=== PATIENT | female | born 1965 | race Caucasian/White ===

== ENCOUNTER 2016-10-31 16:41 | Inpatient (IN) | payer MEDICARE ==
[~2016-10-31] VITALS: Ht 172.7 cm; Wt 51.4 kg
[~2016-10-31 16:41] MED LIST: ALENDRONATE SOD70 MG PO; ALPRAZOLAM0.5 MG PO; ASPIR 8181 MG PO; BACTROBAN CREAM15 GM TOP; CALCIUM 600 +1 EAC7 PO; CLINDAMYCIN HC300 MG PO; DESYREL 50 MG T50 MG PO; DIAMOX 250 MG250 MG PO; DOXYCYCLINE HY100 MG PO; FERROUS SULFAT325 MG PO; FIORICET TAB1 EA PO; FLAGYL500 MG PO; FOLIC ACID 1 MG1 MG PO; GABAPENTIN600 MG PO; GARCINIA CAMBO1 EACH PO; GINKGO BILOBA30 MG PO; IBUPROFEN600 MG PO; IPRAT-ALBUT 0.5-3 ML INH; K-DUR TAB 20 M20 MEQ PO; KEFLEX500 MG PO; KLOR-CON M2020 MEQ PO; LASIX40 MG PO; LEVAQUIN750 MG PO; LIORESAL TAB 1010 MG PO; LOPERAMIDE2 MG PO; LOPRESSOR 25 MG25 MG PO; MEDROL DOSEPAK 24 MG PO; METOLAZONE2.5 MG PO; MULTI-VITAMIN1 EACH PO; NEURONTIN 300300 MG PO; OXYCODONE HCL10 MG PO; OXYCODONE HCL5 MG PO; PHENERGAN 25 MG25 M1 PO; PROAIR HFA8.5 GM INH; SINGULAIR10 MG PO; SYMBICORT 16010.2 GM INH; SYNTHROID112 MCG PO; TOPAMAX50 MG PO; TRAZODONE HCL150 MG PO; VENLAFAXINE HC100 MG PO; VENTOLIN/PROVE0.5 ML INH; VITAMIN B COMP1 EACH PO; VITAMIN B-121000 MC3 PO; VITAMIN C 500500 MG PO; VITAMIN D1000 UNI1 PO; WELLBUTRIN XL150 MG PO; ZANTAC150 MG PO; ZOLOFT25 MG PO; ZYRTEC10 M3 PO
[2016-10-31 17:42] LABS: RED BLOOD COUNT 4.45 M/UL (4.00-5.10); WHITE BLOOD COUNT 8.3 K/UL (4.5-11.0)
[2016-10-31 21:01] LABS: BUN/CREATININE RATIO 8 (0-10)
[2016-11-01 04:48] LABS: WHITE BLOOD COUNT 8.9 K/UL (4.5-11.0)
[2016-11-01 04:58] LABS: HEMOGLOBIN 10.1 gm/dl (12.3-15.3); RED BLOOD COUNT 3.51 M/UL (4.00-5.10)
[2016-11-01 05:25] LABS: BUN/CREATININE RATIO 9 (0-10)
[2016-11-01] MEDS ORDERED: DIAMOX 250 MG250 MG PO (10:49)
[2016-11-01] MEDS ORDERED: ALENDRONATE SOD70 MG PO (10:52)
[2016-11-01] MEDS ORDERED: ALPRAZOLAM0.5 MG PO (10:53)
[2016-11-01] MEDS ORDERED: BUTALBIT-ACETA1 EACH PO (10:55)
[2016-11-01] MEDS ORDERED: DOXYCYCLINE MO100 MG PO (10:57)
[2016-11-01] MEDS ORDERED: ETODOLAC400 MG PO (10:58)
[2016-11-01] MEDS ORDERED: FERROUS GLUCON324 M1 PO (10:59)
[2016-11-01] MEDS ORDERED: OXYCODONE HCL10 MG PO (11:02)
[2016-11-02 04:16] LABS: BUN/CREATININE RATIO 12 (0-10)
[2016-11-02 05:02] LABS: HEMOGLOBIN 9.4 gm/dl (12.3-15.3); RED BLOOD COUNT 3.27 M/UL (4.00-5.10)
[2016-11-02 05:04] LABS: WHITE BLOOD COUNT 6.6 K/UL (4.5-11.0)
[2016-11-03 04:42] LABS: RED BLOOD COUNT 3.13 M/UL (4.00-5.10); WHITE BLOOD COUNT 5.9 K/UL (4.5-11.0)
[2016-11-03 05:01] LABS: BUN/CREATININE RATIO 16 (0-10)
[2016-11-03] MEDS ORDERED: POTASSIUM CHLO20 ME1 PO (15:12)
[2016-11-03] MEDS ORDERED: QUESTRAN LIGHT 44 GM PO (15:16)
[2016-11-03] MEDS ORDERED: SYNTHROID 125125 MCG PO (15:24)
[2016-11-03] MEDS ORDERED: LOPERAMIDE2 MG PO (15:52)
[2017-04-27] MEDS ORDERED: BREO ELLIPTA 11 EACH INH ×2 (00:09→00:13)
[2017-04-27] MEDS ORDERED: DIFLORASONE DIA TP (00:11)
[2017-05-01] MEDS ORDERED: PREDNISONE 20 M20 MG PO (13:36)
[2017-07-10] MEDS ORDERED: BREO ELLIPTA 11 EACH INH (11:51)
[2017-07-10] MEDS ORDERED: FUROSEMIDE80 MG PO (11:53)
[2017-07-10] MEDS ORDERED: CIPRO500 MG PO (11:55)
[2017-07-10] MEDS ORDERED: BACTRIM DS TAB1 EACH PO (11:56)
[2017-07-10] MEDS ORDERED: DIFLUCAN100 MG PO (11:56)
== END 2016-11-03 18:53 | disposition home health service (06) | DRG 918 ==
LOC: ER1 16:41 → ZEROF 23:00 → CCU 23:00 → PROG CARE 11-01 09:30 → CCU 11-02 10:31 → PROG CARE 11-02 14:36
PROVIDERS: Emergency Medicine; Family Medicine; ADMIT Emergency Medicine
DX: T50.2X1A Poisoning by carbonic-anhydrase inhibitors, benzothiadiazides and other diuretics, accidental (unintentional), initial encounter (principal); J96.11 Chronic respiratory failure with hypoxia; J96.12 Chronic respiratory failure with hypercapnia; E66.2 Morbid (severe) obesity with alveolar hypoventilation; K52.1 Toxic gastroenteritis and colitis; I50.32 Chronic diastolic (congestive) heart failure; M96.842 Postprocedural seroma of a musculoskeletal structure following a musculoskeletal system procedure; E87.6 Hypokalemia; I11.0 Hypertensive heart disease with heart failure; J44.9 Chronic obstructive pulmonary disease, unspecified; E03.9 Hypothyroidism, unspecified; J45.909 Unspecified asthma, uncomplicated; F32.9 Major depressive disorder, single episode, unspecified; F17.210 Nicotine dependence, cigarettes, uncomplicated; R74.9 Abnormal serum enzyme level, unspecified; I44.7 Left bundle-branch block, unspecified; T50.2X5A Adverse effect of carbonic-anhydrase inhibitors, benzothiadiazides and other diuretics, initial encounter; F41.1 Generalized anxiety disorder; D63.8 Anemia in other chronic diseases classified elsewhere; K52.9 Noninfective gastroenteritis and colitis, unspecified; F41.8 Other specified anxiety disorders; Y83.8 Other surgical procedures as the cause of abnormal reaction of the patient, or of later complication, without mention of misadventure at the time of the procedure; I95.9 Hypotension, unspecified; F55.8 Abuse of other non-psychoactive substances; Z85.3 Personal history of malignant neoplasm of breast; Z98.84 Bariatric surgery status; Z68.35 Body mass index [BMI] 35.0-35.9, adult; Z88.5 Allergy status to narcotic agent; Z88.0 Allergy status to penicillin; Z88.6 Allergy status to analgesic agent
CPT/HCPCS: ECHO; 36415; 71010; 78452; 80048; 80053; 80307; 81001; 82533; 82550; 82553; 82962; 83605; 83735; 83874; 83880; 84132; 84439; 84443; 84484; 84703; 85025; 85027; 85379; 85610; 85730; 87040; 87070; 87086; 87205; 89055; 93005; 93017; 93306; 94664; 96365; 96366; 96367; 96375; 99291; A9502; G0378; J1644; J1956; J2185; J2405; J2785; J3370; J3480; J7030; J7040; J7050; J7070; Q9963

== ENCOUNTER 2016-11-20 00:11 | Inpatient (IN) | payer MEDICARE ==
[~2016-11-20] VITALS: Ht 175.3 cm; Wt 124.7 kg
[~2016-11-20 00:11] MED LIST changes: +BUTALBIT-ACETA1 EACH PO; +DOXYCYCLINE MO100 MG PO; +ETODOLAC400 MG PO; +FERROUS GLUCON324 M1 PO; +POTASSIUM CHLO20 ME1 PO; +QUESTRAN LIGHT 44 GM PO; +SYNTHROID 125125 MCG PO
[2016-11-20 05:15] LABS: HEMOGLOBIN 11.6 gm/dl (12.3-15.3); RED BLOOD COUNT 4.15 M/UL (4.00-5.10); WHITE BLOOD COUNT 9.4 K/UL (4.5-11.0)
[2016-11-20 05:33] LABS: BUN/CREATININE RATIO 14 (0-10)
[2016-11-20] MEDS ORDERED: LEVAQUIN750 MG PO (12:19)
[2016-11-20] MEDS ORDERED: ALPRAZOLAM0.5 MG PO (12:25)
[2016-11-20] MEDS ORDERED: FOLIC ACID 1 MG1 MG PO (12:26)
[2016-11-20] MEDS ORDERED: VITAMIN D2000 UNI1 PO (12:26)
[2016-11-20] MEDS ORDERED: PROVENTIL HFA 61 INH INH (12:27)
[2016-11-20] MEDS ORDERED: SYMBICORT 160-1 INHA INH (12:28)
[2016-11-20] MEDS ORDERED: OXYCODONE HCL10 MG PO (12:32)
[2016-11-21 04:33] LABS: HEMOGLOBIN 9.1 gm/dl (12.3-15.3); RED BLOOD COUNT 3.14 M/UL (4.00-5.10); WHITE BLOOD COUNT 7.9 K/UL (4.5-11.0)
[2016-11-21 05:34] LABS: BUN/CREATININE RATIO 15 (0-10)
[2016-11-22 04:24] LABS: HEMOGLOBIN 9.4 gm/dl (12.3-15.3); RED BLOOD COUNT 3.25 M/UL (4.00-5.10); WHITE BLOOD COUNT 7.3 K/UL (4.5-11.0)
[2016-11-22 04:51] LABS: BUN/CREATININE RATIO 16 (0-10)
[2016-11-23 04:48] LABS: HEMOGLOBIN 8.4 gm/dl (12.3-15.3); RED BLOOD COUNT 3.02 M/UL (4.00-5.10); WHITE BLOOD COUNT 5.6 K/UL (4.5-11.0)
[2016-11-23 05:01] LABS: BUN/CREATININE RATIO 23 (0-10)
[2016-11-24 07:23] LABS: HEMOGLOBIN 9.6 gm/dl (12.3-15.3)
[2016-11-24 07:30] LABS: RED BLOOD COUNT 3.4 M/UL (4.00-5.10); WHITE BLOOD COUNT 7.9 K/UL (4.5-11.0)
[2016-11-24 07:39] LABS: BUN/CREATININE RATIO 28 (0-10)
[2016-11-25 06:40] LABS: HEMOGLOBIN 9.2 gm/dl (12.3-15.3); RED BLOOD COUNT 3.34 M/UL (4.00-5.10); WHITE BLOOD COUNT 8.6 K/UL (4.5-11.0)
[2016-11-25 06:59] LABS: BUN/CREATININE RATIO 27 (0-10)
[2016-11-26 06:51] LABS: RED BLOOD COUNT 3.31 M/UL (4.00-5.10); WHITE BLOOD COUNT 7.9 K/UL (4.5-11.0)
[2016-11-26 07:06] LABS: BUN/CREATININE RATIO 30 (0-10)
[2016-11-26] MEDS ORDERED: LEVAQUIN500 MG PO (11:22)
[2017-04-27] MEDS ORDERED: BREO ELLIPTA 11 EACH INH ×2 (00:09→00:13)
[2017-04-27] MEDS ORDERED: DIFLORASONE DIA TP (00:11)
[2017-05-01] MEDS ORDERED: PREDNISONE 20 M20 MG PO (13:36)
[2017-07-10] MEDS ORDERED: BREO ELLIPTA 11 EACH INH (11:51)
[2017-07-10] MEDS ORDERED: FUROSEMIDE80 MG PO (11:53)
[2017-07-10] MEDS ORDERED: CIPRO500 MG PO (11:55)
[2017-07-10] MEDS ORDERED: DIFLUCAN100 MG PO (11:56)
[2017-07-10] MEDS ORDERED: BACTRIM DS TAB1 EACH PO (11:56)
== END 2016-11-26 15:46 | disposition home or self-care (01) | DRG 464 ==
LOC: ER1 00:11 → ZEROF 09:52 → MED SURG 4 14:32
PROVIDERS: Internal Medicine; Orthopaedic Surgery; Student in an Organized Health Care Education/Training Program; ADMIT Family Medicine
PROC: 3E0T3CZ (ICD-10-PCS; 2016-11-24)
PROC: 0JBF0ZZ Excision of Left Upper Arm Subcutaneous Tissue and Fascia, Open Approach (ICD-10-PCS; principal; 2016-11-24 15:45)
DX: M54.5 Low back pain (principal); J96.10 Chronic respiratory failure, unspecified whether with hypoxia or hypercapnia; E66.2 Morbid (severe) obesity with alveolar hypoventilation; Z68.41 Body mass index [BMI] 40.0-44.9, adult; T81.30XA Disruption of wound, unspecified, initial encounter; I50.32 Chronic diastolic (congestive) heart failure; N13.30 Unspecified hydronephrosis; J44.0 Chronic obstructive pulmonary disease with (acute) lower respiratory infection; M96.842 Postprocedural seroma of a musculoskeletal structure following a musculoskeletal system procedure; W01.0XXA Fall on same level from slipping, tripping and stumbling without subsequent striking against object, initial encounter; Y92.002 Bathroom of unspecified non-institutional (private) residence as the place of occurrence of the external cause; Y83.8 Other surgical procedures as the cause of abnormal reaction of the patient, or of later complication, without mention of misadventure at the time of the procedure; I11.0 Hypertensive heart disease with heart failure; I27.2 Other secondary pulmonary hypertension; D63.8 Anemia in other chronic diseases classified elsewhere; I25.10 Atherosclerotic heart disease of native coronary artery without angina pectoris; J45.909 Unspecified asthma, uncomplicated; I44.7 Left bundle-branch block, unspecified; R07.89 Other chest pain; R74.8 Abnormal levels of other serum enzymes; E03.9 Hypothyroidism, unspecified; E78.5 Hyperlipidemia, unspecified; J20.9 Acute bronchitis, unspecified; I07.1 Rheumatic tricuspid insufficiency; M81.0 Age-related osteoporosis without current pathological fracture; I89.0 Lymphedema, not elsewhere classified; F41.1 Generalized anxiety disorder; F17.210 Nicotine dependence, cigarettes, uncomplicated; F32.9 Major depressive disorder, single episode, unspecified; Z95.1 Presence of aortocoronary bypass graft; K91.1 Postgastric surgery syndromes; Z91.19 Patient's noncompliance with other medical treatment and regimen; Z98.84 Bariatric surgery status; Z85.3 Personal history of malignant neoplasm of breast; Z91.81 History of falling; Z99.81 Dependence on supplemental oxygen; Z79.51 Long term (current) use of inhaled steroids; Z79.891 Long term (current) use of opiate analgesic; Z79.82 Long term (current) use of aspirin; Z79.899 Other long term (current) drug therapy; Z88.0 Allergy status to penicillin; Z88.5 Allergy status to narcotic agent; Z90.11 Acquired absence of right breast and nipple; Z90.49 Acquired absence of other specified parts of digestive tract; Z98.51 Tubal ligation status; Z98.890 Other specified postprocedural states; Z82.5 Family history of asthma and other chronic lower respiratory diseases; Z83.3 Family history of diabetes mellitus; Z82.49 Family history of ischemic heart disease and other diseases of the circulatory system
CPT/HCPCS: 36415; 70450; 71250; 72125; 72128; 72131; 73700; 76881; 80048; 80053; 80307; 81001; 82550; 82553; 83605; 83690; 83874; 83880; 84132; 84484; 85025; 85027; 85610; 85730; 87040; 87070; 87077; 87086; 87186; 87205; 93005; 93970; 94640; 94660; 94664; 96374; 96375; 99285; G0378; G0480; J1630; J1650; J1956; J2250; J2270; J2405; J2930; J3010; J3370; J7120; Q9962

== ENCOUNTER 2016-11-29 18:01 | Emergency (ER) | payer MEDICARE ==
[~2016-11-29 18:01] MED LIST changes: +LEVAQUIN500 MG PO; +PROVENTIL HFA 61 INH INH; +SYMBICORT 160-1 INHA INH; +VITAMIN D2000 UNI1 PO
[2016-11-29 19:31] LABS: HEMOGLOBIN 10.6 gm/dl (12.3-15.3); RED BLOOD COUNT 3.77 M/UL (4.00-5.10); WHITE BLOOD COUNT 6.1 K/UL (4.5-11.0)
[2016-11-29 20:05] LABS: BUN/CREATININE RATIO 11 (0-10)
[2017-04-27] MEDS ORDERED: BREO ELLIPTA 11 EACH INH ×2 (00:09→00:13)
[2017-04-27] MEDS ORDERED: DIFLORASONE DIA TP (00:11)
[2017-05-01] MEDS ORDERED: PREDNISONE 20 M20 MG PO (13:36)
[2017-07-10] MEDS ORDERED: BREO ELLIPTA 11 EACH INH (11:51)
[2017-07-10] MEDS ORDERED: FUROSEMIDE80 MG PO (11:53)
[2017-07-10] MEDS ORDERED: CIPRO500 MG PO (11:55)
[2017-07-10] MEDS ORDERED: BACTRIM DS TAB1 EACH PO (11:56)
[2017-07-10] MEDS ORDERED: DIFLUCAN100 MG PO (11:56)
== END 2016-11-29 22:30 | disposition home or self-care (01) ==
LOC: ER1 18:01
PROVIDERS: Specialist/Technologist Athletic Trainer
DX: I95.9 Hypotension, unspecified (principal); F17.200 Nicotine dependence, unspecified, uncomplicated; E66.01 Morbid (severe) obesity due to excess calories; Z88.0 Allergy status to penicillin; Z88.1 Allergy status to other antibiotic agents
CPT/HCPCS: 36415; 80053; 82550; 82553; 84484; 85025; 93005; 96360; 99285

== ENCOUNTER 2016-12-17 23:36 | Emergency (ER) | payer MEDICARE ==
[2017-04-27] MEDS ORDERED: BREO ELLIPTA 11 EACH INH ×2 (00:09→00:13)
[2017-04-27] MEDS ORDERED: DIFLORASONE DIA TP (00:11)
[2017-05-01] MEDS ORDERED: PREDNISONE 20 M20 MG PO (13:36)
[2017-07-10] MEDS ORDERED: BREO ELLIPTA 11 EACH INH (11:51)
[2017-07-10] MEDS ORDERED: FUROSEMIDE80 MG PO (11:53)
[2017-07-10] MEDS ORDERED: CIPRO500 MG PO (11:55)
[2017-07-10] MEDS ORDERED: BACTRIM DS TAB1 EACH PO (11:56)
[2017-07-10] MEDS ORDERED: DIFLUCAN100 MG PO (11:56)
== END 2016-12-18 01:10 | disposition left against medical advice (07) ==
LOC: ER1 23:36
DX: Z53.21 Procedure and treatment not carried out due to patient leaving prior to being seen by health care provider (principal)
CPT/HCPCS: 82962

== ENCOUNTER 2016-12-18 15:57 | Emergency (ER) | payer MEDICARE ==
[2016-12-18 18:19] LABS: BUN/CREATININE RATIO 35 (0-10)
[2016-12-18 19:05] LABS: HEMOGLOBIN 11.3 gm/dl (12.3-15.3); RED BLOOD COUNT 3.9 M/UL (4.00-5.10); WHITE BLOOD COUNT 10.1 K/UL (4.5-11.0)
[2017-04-27] MEDS ORDERED: BREO ELLIPTA 11 EACH INH ×2 (00:09→00:13)
[2017-04-27] MEDS ORDERED: DIFLORASONE DIA TP (00:11)
[2017-05-01] MEDS ORDERED: PREDNISONE 20 M20 MG PO (13:36)
[2017-07-10] MEDS ORDERED: BREO ELLIPTA 11 EACH INH (11:51)
[2017-07-10] MEDS ORDERED: FUROSEMIDE80 MG PO (11:53)
[2017-07-10] MEDS ORDERED: CIPRO500 MG PO (11:55)
[2017-07-10] MEDS ORDERED: DIFLUCAN100 MG PO (11:56)
[2017-07-10] MEDS ORDERED: BACTRIM DS TAB1 EACH PO (11:56)
== END 2016-12-18 23:03 | disposition home or self-care (01) ==
LOC: ER1 15:57
PROVIDERS: Physician Assistant
DX: R07.89 Other chest pain (principal); R60.0 Localized edema; E16.2 Hypoglycemia, unspecified; S41.002D Unspecified open wound of left shoulder, subsequent encounter; J44.9 Chronic obstructive pulmonary disease, unspecified; J45.909 Unspecified asthma, uncomplicated; M54.9 Dorsalgia, unspecified; G89.29 Other chronic pain; Z85.3 Personal history of malignant neoplasm of breast; F17.210 Nicotine dependence, cigarettes, uncomplicated; Z88.0 Allergy status to penicillin; Z88.5 Allergy status to narcotic agent; Z88.8 Allergy status to other drugs, medicaments and biological substances; X58.XXXD Exposure to other specified factors, subsequent encounter
CPT/HCPCS: 36415; 71010; 80053; 82550; 82553; 82962; 83874; 83880; 84484; 85025; 93005; 99285

== ENCOUNTER → 2017-01-02 | Outpatient (CLI) | payer MEDICARE ==
[~2017-01-02] MED LIST changes: +BACTRIM DS TAB1 EACH PO; +BREO ELLIPTA 11 EACH INH; +CIPRO500 MG PO; +DIFLORASONE DIA TP; +DIFLUCAN100 MG PO; +FUROSEMIDE80 MG PO; +PREDNISONE 20 M20 MG PO
[2017-01-02 17:02] LABS: HEMOGLOBIN 11.4 gm/dl (12.3-15.3); RED BLOOD COUNT 4.11 M/UL (4.00-5.10); WHITE BLOOD COUNT 10.1 K/UL (4.5-11.0)
== END ==
LOC: LAB 16:02
PROVIDERS: Nurse Practitioner
DX: M00.9 Pyogenic arthritis, unspecified (principal)
CPT/HCPCS: 36415; 85027

== ENCOUNTER 2017-01-20 21:52 | Emergency (ER) | payer MEDICARE ==
[~2017-01-20 21:52] MED LIST changes: -BACTRIM DS TAB1 EACH PO; -BREO ELLIPTA 11 EACH INH; -CIPRO500 MG PO; -DIFLORASONE DIA TP; -DIFLUCAN100 MG PO; -FUROSEMIDE80 MG PO; -PREDNISONE 20 M20 MG PO
[2017-04-27] MEDS ORDERED: BREO ELLIPTA 11 EACH INH ×2 (00:09→00:13)
[2017-04-27] MEDS ORDERED: DIFLORASONE DIA TP (00:11)
[2017-05-01] MEDS ORDERED: PREDNISONE 20 M20 MG PO (13:36)
[2017-07-10] MEDS ORDERED: BREO ELLIPTA 11 EACH INH (11:51)
[2017-07-10] MEDS ORDERED: FUROSEMIDE80 MG PO (11:53)
[2017-07-10] MEDS ORDERED: CIPRO500 MG PO (11:55)
[2017-07-10] MEDS ORDERED: BACTRIM DS TAB1 EACH PO (11:56)
[2017-07-10] MEDS ORDERED: DIFLUCAN100 MG PO (11:56)
== END 2017-01-21 02:00 | disposition home or self-care (01) ==
LOC: ER1 21:52
DX: M25.512 Pain in left shoulder (principal); S00.83XA Contusion of other part of head, initial encounter; J44.9 Chronic obstructive pulmonary disease, unspecified; Z88.0 Allergy status to penicillin; Z88.6 Allergy status to analgesic agent; W19.XXXA Unspecified fall, initial encounter; Y92.009 Unspecified place in unspecified non-institutional (private) residence as the place of occurrence of the external cause
CPT/HCPCS: 70450; 70486; 99283

== ENCOUNTER 2017-06-16 04:14 | Emergency (ER) | payer MEDICARE ==
[~2017-06-16 04:14] MED LIST changes: +BREO ELLIPTA 11 EACH INH; +DIFLORASONE DIA TP; +PREDNISONE 20 M20 MG PO
[2017-06-16 05:31] LABS: HEMOGLOBIN 9.5 gm/dl (12.3-15.3); RED BLOOD COUNT 4.32 M/UL (4.00-5.10)
[2017-06-16 05:36] LABS: BUN/CREATININE RATIO 33 (0-10)
== END 2017-06-16 07:00 | disposition home or self-care (01) ==
LOC: ER1 04:14
PROVIDERS: Family Medicine
DX: R60.0 Localized edema (principal); F17.200 Nicotine dependence, unspecified, uncomplicated; Z88.0 Allergy status to penicillin
CPT/HCPCS: 36415; 80053; 83880; 85025; 99285